=== PATIENT | male | born 1965 | race Caucasian/White ===

== ENCOUNTER 2018-12-10 15:49 | Emergency (ER) | payer OTHER ==
--- NOTE | 2018-12-10 15:51 | EDPHY ---
H & P Time Seen by Provider: 12/10/18 15:51 HPI/ROS: HPI CHIEF COMPLAINT: Fever, muscle aches, joint pain since Monday. HISTORY OF PRESENT ILLNESS: 53-year-old male otherwise healthy does have a history of hypertension, and fatty liver disease, presents to the emergency room with fever, chills, muscle aches, cough which is nonproductive. Patient denies any chest pain denies nausea vomiting or diarrhea. He did take ibuprofen around 6:00 a.m. This morning but has not take anything further for his fever. Past Medical History: Hypertension, fatty liver Past Surgical History: Tonsillectomy Social History: Denies drugs alcohol tobacco. Family History: Noncontributory ROS REVIEW OF SYSTEMS: 10 Systems were reviewed and negative with the exception of the elements mentioned in the history of present illness. Exam Constitutional appears nontoxic, triage nursing summary reviewed, vital signs reviewed, awake/alert. Slightly tachycardic at 1:07 a.m., febrile 39 Eyes normal conjunctivae and sclera, EOMI, PERRLA. HENT normal inspection, atraumatic, moist mucus membranes, no epistaxis, neck supple/ no meningismus, no raccoon eyes. Respiratory clear to auscultation bilaterally, normal breath sounds, no respiratory distress, no wheezing. Cardiovascular tachycardic, regular rhythm, no murmur, no edema, distal pulses normal. Gastrointestinal soft, non-tender, no rebound, no guarding, normal bowel sounds, no distension, no pulsatile mass. Genitourinary no CVA tenderness. Musculoskeletal no midline vertebral tenderness, full range of motion, no calf swelling, no tenderness of extremities, no meningismus, good pulses, neurovascularly intact. Skin pink, warm, & dry, no rash, skin atraumatic. Neurologic awake, alert and oriented x 3, AAOx3, moves all 4 extremities equally, motor intact, sensory intact, CN II-XII intact, normal cerebellar, normal vision, normal speech. Psychiatric normal mood/affect. Heme/Lymph/Immune no lymphadenopathy. Differential Diagnosis: Includes but is not limited to in a particular order acute febrile illness, influenza, pneumonia, viral syndrome Medical Decision Making: Plan for this patient two view chest x-ray to rule out pneumonia, check influenza, 1 g of Tylenol for fever control and re- evaluate. Re-evaluation: Chest x-ray two view reviewed. Tender bronchitis no focal pneumonia. Read by Radiology Dr. Kenny. Influenza AB nondetected. Chest x-ray reviewed shows no evidence of pneumonia. 185: Patient here in the emergency room with fever, feeling much better after Tylenol Motrin, and IV fluids. Chest x-ray revealed shows no evidence of pneumonia. Influenza is not detected. Patient would like to go home. I encouraged him to drink lots of fluids stay well-hydrated He should alternate Tylenol Motrin for fever pain control He understands and not exceed 3000 mg of Tylenol in 24. Given his chest does not show dense pneumonia however there is some haziness or will place on Augmentin. He understands drink lots of fluids stay well-hydrated. Follow up with his primary care doctor Return precautions discussed return if worsening symptoms high fever, vomiting, not doing well Clinically on exam he appears well nontoxic most likely has a viral process. Possible early bacterial pneumonia. Source: Patient Constitutional: Initial Vital Signs Temperature (C) 39 C H 12/10/18 15:55 Heart Rate 107 H 12/10/18 15:55 Respiratory Rate 18 12/10/18 15:55 Blood Pressure 151/101 H 12/10/18 15:55 O2 Sat (%) 95 12/10/18 15:55 O2 Delivery Mode Room Air Allergies/Adverse Reactions: No Known Allergies Allergy (Unverified 12/10/18 15:59) Home Medications: Medication Instructions Recorded Amoxicillin/Clavulanate Pot 875 mg PO BID #14 tab 12/10/18 [Augmentin 875 MG TAB (*)] Diovan Hct 160-12.5 mg Tab 12/10/18 Medical Decision Making - Diagnostics Imaging Results: Imaging Impressions Chest X-Ray 12/10/18 16:13 Impression: Central bronchitis, without pneumonia identified.. - Data Points Laboratory Results: 12/10/18 12/10/18 12/10/18 18:38 17:25 17:21 POC Sodium 136 mEq/L mEq/L (135-145) POC Potassium 3.2 mEq/L L mEq/L (3.3-5.0) POC Chloride 99.0 mEq/L mEq/L (97-110) POC Total CO2 26 mEq/L mEq/L (22-31) POC BUN 16 mg/dL mg/dL (7-23) POC Creatinine 1.2 mg/dL mg/dL (0.7-1.3) POC Glucose 150 mg/dL H mg/dL (70-100) POC Lactic Acid Maury 1.2 mmol/L D mmol/L 2.1 mmol/L mmol/L (0.7-2.1) (0.7-2.1) POC Calcium 9.6 mg/dL mg/dL (8.5-10.4) Medications Given: Discontinued Medications Acetaminophen (Tylenol) 1,000 mg PO EDNOW ONE Stop: 12/10/18 16:07 Last Admin: 12/10/18 16:07 Dose: 1,000 mg Sodium Chloride (Ns) 1,000 mls @ 0 mls/hr IV EDNOW ONE; Wide Open PRN Reason: Protocol Stop: 12/10/18 17:02 Last Admin: 12/10/18 17:20 Dose: 1,000 mls Ibuprofen (Motrin) 800 mg PO EDNOW ONE Stop: 12/10/18 17:18 Last Admin: 12/10/18 17:46 Dose: 800 mg Point of Care Test Results: CBC CBC Collection Date 12/10/18 CBC Collection Time 17:10 WBC 9.6 RBC 5.62 HGB 16.0 HCT 47.1 PLT 181 Neut # 8.8 Neut 91.1 LYMPH # 0.4 LYMPH 4.3 Other WBC # 0.4 Other WBC 4.6 MCV 83.8 Chemistry 12/10/18 17:21 POC Sodium 136 mEq/L mEq/L (135-145) POC Potassium 3.2 mEq/L L mEq/L (3.3-5.0) POC Chloride 99.0 mEq/L mEq/L (97-110) POC Total CO2 26 mEq/L mEq/L (22-31) POC BUN 16 mg/dL mg/dL (7-23) POC Creatinine 1.2 mg/dL mg/dL (0.7-1.3) POC Glucose 150 mg/dL H mg/dL (70-100) POC Calcium 9.6 mg/dL mg/dL (8.5-10.4) Blood Gas/Lactic Acid-Venous 12/10/18 12/10/18 18:38 17:25 POC Lactic Acid Maury 1.2 mmol/L D mmol/L 2.1 mmol/L mmol/L (0.7-2.1) (0.7-2.1) Influenza PCR Flu Nasal Swab Collection Date 12/10/18 Flu Nasal Swab Collection Time 16:00 Influenza A Result Not Detected Influenza B Result Not Detected Urine Dip Collection Date 12/10/18 Collection Time 18:15 Specific [place] (1.002-1.030) 1.015 PH (5.0-7.5) 5.5 Leukocytes (Negative) Negative Nitrites (Negative) Negative Protein (Negative) Negative Glucose (Negative) Negative Ketones (Negative) Negative Urobilnogen (0.2-1.0 EU) 0.2 Bilirubin (Negative) Negative Blood (Negative) Negative Departure - Departure Disposition: Home, Routine, Self-Care Clinical Impression: Viral syndrome, Bronchitis Fever Qualifiers: Fever type: unspecified Qualified Code(s): R50.9 - Fever, unspecified Condition: Good Instructions: Fever in Adults (ED), Acute Bronchitis (ED), Viral Syndrome (ED) Additional Instructions: 1. Make sure to drink lots of fluids 2. Stay well-hydrated. 3. Make sure to keep her fever down Tylenol Motrin alternate these every 6 hr 4. Please additionally follow up with her primary care doctor 5. Antibiotics as prescribed 6. Return if worse. Referrals: Kamran Reyes MD [Primary Care Provider] - As per Instructions Prescriptions: Amoxicillin/Clavulanate Pot [Augmentin 875 MG TAB (*)] 875 mg PO BID #14 tab
[2018-12-10] MEDS ORDERED: ACETAMINOPHEN 500 MG TAB ONE (16:05)
[2018-12-10] MEDS ORDERED: ACETAMINOPHEN 500 MG TAB PO ONE (16:06)
[2018-12-10] MEDS ORDERED: NS 1,000 ML IV ONE (17:01)
[2018-12-10] MEDS ORDERED: IBUPROFEN 800 MG TAB PO ONE (17:17)
[2018-12-10 19:11] VITALS: BP 139/88
== END 2018-12-10 19:33 | disposition home or self-care (01) ==
LOC: CED 15:49
DX: B34.9 Viral infection, unspecified (principal); J40 Bronchitis, not specified as acute or chronic
CPT/HCPCS: 71046-PO; 80048-ER; 83605-ER; 96360-ER; 99284-ER